=== PATIENT | male | born 1990 | race Caucasian/White ===

== ENCOUNTER 2020-11-16 23:44 | Emergency (ER) | payer SELFPAY ==
[2020-11-17] MEDS ORDERED: LODINE CAP 300300 MG PO (02:11)
[2020-11-19 10:18] LABS: AMPHETAMINES, URINE Negative; BARBITURATE Negative
[2020-11-19 10:19] LABS: BENZODIAZEPINES Negative; CANNABINOIDS Negative; COCAINE (METABOLITE) Negative; MEPERIDINE Negative; METHADONE Negative; OPIATES Negative; PHENCYCLIDINE Negative; PROPOXYPHENE Negative
[2020-11-19 10:21] LABS: CREATININE 93.1 mg/dL
== END 2020-11-17 02:20 | disposition home or self-care (01) ==
LOC: ER1 23:44
PROVIDERS: Physician Assistant
DX: S30.0XXA Contusion of lower back and pelvis, initial encounter (principal); S20.224A Contusion of middle back wall of thorax, initial encounter; Z90.89 Acquired absence of other organs; W19.XXXA Unspecified fall, initial encounter; Y92.009 Unspecified place in unspecified non-institutional (private) residence as the place of occurrence of the external cause
CPT/HCPCS: 72128; 72131; 80307; 99283